=== PATIENT | male | born 1940 | race Caucasian/White ===

== ENCOUNTER 2016-08-06 19:19 | Inpatient (IN) | payer OTHER ==
[~2016-08-06] VITALS: Ht 172.7 cm; Wt 87.7 kg
[~2016-08-06 19:19] MED LIST: ALDACTONE25 MG PO; CLARINEX5 MG PO; CLINDAMYCIN HC300 MG PO; CLONAZEPAM1 MG PO; CONSTULOSE10 GM/151 PO; EFUDEX5% TOP; FERROUS SULFAT325 M2 PO; FINASTERIDE5 M1 PO; FLO4 PO; KEN5C TOP; LAC PO; LAC-HYDRIN12% TOP; LASIX20 MG PO; LEVAQUIN750 MG PO; OMEPRAZOLE40 M1 PO; PREDNISONE10 MG PO; VOLTAREN75 MG
[2016-08-06 20:50] LABS: microscopic required? YES; urine erythrocyte 3+ (NEGATIVE)
[2016-08-06 20:57] LABS: BASOPHIL % 1.2 % (0-2)
[2016-08-06 21:02] LABS: PLATELET COUNT 85 x10^3mcL (130-400); RED CELL DISTRIBUTION WIDTH 15.3 % (11.5-14.5)
[2016-08-06 21:19] LABS: ALKALINE PHOSPHATASE 266 U/L (46-116); ALT/SGPT 39 U/L (16-63); AST/SGOT 39 U/L (15-37); BILIRUBIN TOTAL 1.44 mg/dL (0.20-1.00); CALCIUM 8.9 mg/dL (8.5-10.1); CARBON DIOXIDE 22.9 mmol/L (21-32); CHLORIDE SERUM 95 mmol/L (98-107); CREATININE SERUM 1.4 mg/dL (0.7-1.3); POTASSIUM SERUM 4.2 mmol/L (3.5-5.1); SODIUM SERUM 129 mmol/L (136-145); TOTAL PROTEIN, SERUM 7.7 g/dL (6.4-8.2)
[2016-08-06 21:23] LABS: ALBUMIN 3.1 g/dL (3.4-5.0); CK-MB 0.6 ng/mL (0-3.6)
[2016-08-06 21:25] LABS: GLUCOSE SERUM 541 mg/dL (74-106)
[2016-08-06 23:42] LABS: CHOLESTEROL/HDL RATIO 3.8; MAGNESIUM 1.9 mg/dL (1.8-2.4); PHOSPHOROUS 3.3 mg/dL (2.5-4.9)
[2016-08-06 23:46] VITALS: BP 113/74
[2016-08-06 23:48] LABS: FREE T4 1.14 ng/dL (0.76-1.46); FREE THYROXINE INDEX 3.4 ug/dL (1.4-4.5); T4(THYROXINE) 9.9 ug/dL (4.7-13.3)
[2016-08-07 00:32] LABS: T3 TOTAL 0.84 ng/mL
[2016-08-07 01:00] VITALS: BP 123/76
[2016-08-07 05:54] VITALS: BP 119/56
[2016-08-07 06:34] LABS: CARBON DIOXIDE 27.8 mmol/L (21-32); CHLORIDE SERUM 104 mmol/L (98-107); CREATININE SERUM 1.1 mg/dL (0.7-1.3); GLUCOSE SERUM 215 mg/dL (74-106); LACTIC DEHYDROGENASE (LDH) 137 U/L (100-190); POTASSIUM SERUM 4.2 mmol/L (3.5-5.1); SODIUM SERUM 136 mmol/L (136-145)
[2016-08-07 07:20] LABS: BASOPHIL % 1.6 % (0-2)
[2016-08-07 07:27] LABS: PLATELET COUNT 58 x10^3mcL (130-400); RED CELL DISTRIBUTION WIDTH 15.2 % (11.5-14.5)
[2016-08-07 09:19] VITALS: BP 122/69
[2016-08-07 13:03] VITALS: BP 109/71
[2016-08-07 22:10] VITALS: BP 103/62
[2016-08-08 05:39] VITALS: BP 109/55
[2016-08-08 10:00] VITALS: BP 114/52
[2016-08-08 17:16] VITALS: BP 114/52
[2016-08-08 17:22] VITALS: BP 106/57
[2016-08-08] MEDS ORDERED: DIF100 PO (17:27)
[2016-08-08] MEDS ORDERED: LEVAQUIN250 M1 PO (17:27)
[2016-08-08] MEDS ORDERED: GLU500 PO (17:28)
== END 2016-08-08 19:49 | disposition home health service (06) | DRG 871 ==
LOC: ED 19:19 → DU 22:17 → MU 22:17 → DU 23:26 → MU 08-08 10:51
PROVIDERS: Emergency Medicine; ADMIT Family Medicine
DX: A41.9 Sepsis, unspecified organism (principal); E11.00 Type 2 diabetes mellitus with hyperosmolarity without nonketotic hyperglycemic-hyperosmolar coma (NKHHC); K85.90 Acute pancreatitis without necrosis or infection, unspecified; E44.0 Moderate protein-calorie malnutrition; E87.1 Hypo-osmolality and hyponatremia; B37.49 Other urogenital candidiasis; D68.69 Other thrombophilia; I45.2 Bifascicular block; E11.65 Type 2 diabetes mellitus with hyperglycemia; R65.20 Severe sepsis without septic shock; K74.69 Other cirrhosis of liver; E78.1 Pure hyperglyceridemia; K72.90 Hepatic failure, unspecified without coma; F41.8 Other specified anxiety disorders; D69.6 Thrombocytopenia, unspecified
CPT/HCPCS: 76770; 82962; 83880; 84439; C9113; J0690; J0696; J1815; J1940; J7030; J7512; Q0092

== ENCOUNTER 2016-08-19 14:13 | Observation (INO) | payer OTHER ==
[~2016-08-19] VITALS: Ht 172.7 cm; Wt 84.9 kg
[~2016-08-19 14:13] MED LIST changes: +DIF100 PO; +GLU500 PO; +LEVAQUIN250 M1 PO
[2016-08-19 15:05] LABS: BASOPHIL % 1.4 % (0-2)
[2016-08-19 15:07] LABS: PLATELET COUNT 115 x10^3mcL (130-400); RED CELL DISTRIBUTION WIDTH 15.1 % (11.5-14.5)
[2016-08-19 15:08] LABS: CALCIUM 9.1 mg/dL (8.5-10.1); CARBON DIOXIDE 20.9 mmol/L (21-32); CHLORIDE SERUM 108 mmol/L (98-107); CREATININE SERUM 1.3 mg/dL (0.7-1.3); GLUCOSE SERUM 86 mg/dL (74-106); SODIUM SERUM 140 mmol/L (136-145)
[2016-08-19 15:24] LABS: ALKALINE PHOSPHATASE 151 U/L (46-116); ALT/SGPT 39 U/L (16-63); AST/SGOT 52 U/L (15-37); BILIRUBIN TOTAL 1.1 mg/dL (0.20-1.00); MAGNESIUM 1.8 mg/dL (1.8-2.4); TOTAL PROTEIN, SERUM 7.3 g/dL (6.4-8.2)
[2016-08-19 15:51] LABS: UA SPECIFIC GRAVITY >=1.030 (1.005-1.035); microscopic required? YES; urine erythrocyte 3+ (NEGATIVE)
[2016-08-19 18:45] VITALS: BP 135/76
[2016-08-19 18:50] VITALS: Ht 172.7 cm; Wt 84.9 kg
[2016-08-19 18:52] LABS: FREE T4 1.31 ng/dL (0.76-1.46)
[2016-08-19 18:56] LABS: T3 TOTAL 1.22 ng/mL
[2016-08-19 19:25] LABS: CHOLESTEROL/HDL RATIO 4.1; PHOSPHOROUS 2.8 mg/dL (2.5-4.9)
[2016-08-19 19:31] LABS: FREE THYROXINE INDEX 3.1 ug/dL (1.4-4.5); T4(THYROXINE) 9.8 ug/dL (4.7-13.3)
[2016-08-19 22:43] VITALS: BP 113/76
[2016-08-20 06:16] VITALS: BP 105/65
[2016-08-20 08:00] LABS: BASOPHIL % 0.8 % (0-2)
[2016-08-20 08:01] LABS: PLATELET COUNT 91 x10^3mcL (130-400); RED CELL DISTRIBUTION WIDTH 15.1 % (11.5-14.5)
[2016-08-20 08:16] LABS: CALCIUM 8.8 mg/dL (8.5-10.1); CARBON DIOXIDE 21.7 mmol/L (21-32); CHLORIDE SERUM 105 mmol/L (98-107); CREATININE SERUM 1.3 mg/dL (0.7-1.3); GLUCOSE SERUM 131 mg/dL (74-106); POTASSIUM SERUM 3.9 mmol/L (3.5-5.1); SODIUM SERUM 138 mmol/L (136-145)
[2016-08-20 08:24] LABS: ALBUMIN 2.7 g/dL (3.4-5.0)
[2016-08-20 09:30] VITALS: BP 97/55
[2016-08-20 13:14] VITALS: BP 116/68
[2016-08-20] MEDS ORDERED: CONSTULOSE10 GM/151 PO (16:38)
[2016-08-20] MEDS ORDERED: LEVAQUIN750 MG PO (16:40)
[2016-08-20] MEDS ORDERED: LAC PO (16:41)
[2016-08-20 16:59] VITALS: BP 116/68
[2016-08-20] MEDS ORDERED: DICLOFENAC SODI75 MG PO (17:07)
[2016-08-20 17:20] VITALS: BP 95/59
== END 2016-08-20 18:51 | disposition home or self-care (01) | DRG 441 ==
LOC: ED 14:13 → DU 16:20 → MU 08-20 14:07
PROVIDERS: Emergency Medicine; ADMIT Family Medicine
DX: K72.01 Acute and subacute hepatic failure with coma (principal); E43 Unspecified severe protein-calorie malnutrition; N17.0 Acute kidney failure with tubular necrosis; N39.0 Urinary tract infection, site not specified; D68.69 Other thrombophilia; R31.9 Hematuria, unspecified; K74.60 Unspecified cirrhosis of liver; D69.59 Other secondary thrombocytopenia; E11.65 Type 2 diabetes mellitus with hyperglycemia; E11.59 Type 2 diabetes mellitus with other circulatory complications; Z86.73 Personal history of transient ischemic attack (TIA), and cerebral infarction without residual deficits; Z79.84 Long term (current) use of oral hypoglycemic drugs; Z79.52 Long term (current) use of systemic steroids; Z68.29 Body mass index [BMI] 29.0-29.9, adult
CPT/HCPCS: 80307; 82962; 83880; 84439; G0378; J0696; J1956; J7030; J7512; Q0092

== ENCOUNTER 2017-05-16 14:43 | Inpatient (IN) | payer OTHER ==
[~2017-05-16] VITALS: Ht 172.7 cm; Wt 86.2 kg
[~2017-05-16 14:43] MED LIST changes: +DICLOFENAC SODI75 MG PO
[2017-05-16 15:37] LABS: BASOPHIL % 1.1 % (0-2)
[2017-05-16 15:39] LABS: PLATELET COUNT 120 x10^3mcL (130-400); RED CELL DISTRIBUTION WIDTH 19.2 % (11.5-14.5)
[2017-05-16 16:05] LABS: ALT/SGPT 32 U/L (16-63); CHLORIDE SERUM 105 mmol/L (98-107); POTASSIUM SERUM 3.4 mmol/L (3.5-5.1); SODIUM SERUM 140 mmol/L (136-145)
[2017-05-16 16:21] LABS: ALKALINE PHOSPHATASE 226 U/L (46-116); AST/SGOT 68 U/L (15-37); BILIRUBIN TOTAL 2.37 mg/dL (0.20-1.00); CALCIUM 8.1 mg/dL (8.5-10.1); CARBON DIOXIDE 24.6 mmol/L (21-32); CREATININE SERUM 1.3 mg/dL (0.7-1.3); GLUCOSE SERUM 123 mg/dL (74-106); TOTAL PROTEIN, SERUM 6.5 g/dL (6.4-8.2)
[2017-05-16 16:29] LABS: ALBUMIN 2.3 g/dL (3.4-5.0)
[2017-05-16 16:38] LABS: UA SPECIFIC GRAVITY 1.025 (1.005-1.035); microscopic required? YES; urine erythrocyte 3+ (NEGATIVE)
[2017-05-16 17:19] LABS: SOURCE FLUID ASCITES
[2017-05-16 17:20] LABS: APPEARANCE FLUID HAZY; COLOR FLUID PALE YELLOW; RBC FLUID 382 /cumm; WBC FLUID 241 /cumm
[2017-05-16 17:34] LABS: LYMPHOCYTE FLUID 40 %
[2017-05-16 17:58] LABS: MAGNESIUM 2.1 mg/dL (1.8-2.4); PHOSPHOROUS 2.3 mg/dL (2.5-4.9)
[2017-05-16 18:01] LABS: CHOLESTEROL/HDL RATIO 3.1
[2017-05-16 18:07] LABS: T3 TOTAL 0.83 ng/mL
[2017-05-16 18:14] LABS: FREE T4 1.55 ng/dL (0.76-1.46); FREE THYROXINE INDEX 3.2 ug/dL (1.4-4.5); T4(THYROXINE) 8.3 ug/dL (4.7-13.3)
[2017-05-16 18:20] LABS: AMPHETAMINE QUAL UR NONE DETECTED (NEG <=1000)
[2017-05-16 18:30] VITALS: BP 131/65
[2017-05-16 20:10] VITALS: BP 110/57
[2017-05-16 21:20] VITALS: BP 122/59
[2017-05-17] VITALS (7 sets, daily range): BP systolic 99–135; BP diastolic 52–74
[2017-05-17 07:24] LABS: PLATELET COUNT 90 x10^3mcL (130-400); RED CELL DISTRIBUTION WIDTH 19.2 % (11.5-14.5)
[2017-05-17 07:35] LABS: CALCIUM 7.6 mg/dL (8.5-10.1); CARBON DIOXIDE 24.8 mmol/L (21-32); CHLORIDE SERUM 108 mmol/L (98-107); GLUCOSE SERUM 96 mg/dL (74-106); MAGNESIUM 1.7 mg/dL (1.8-2.4); PHOSPHOROUS 2.5 mg/dL (2.5-4.9); POTASSIUM SERUM 3.3 mmol/L (3.5-5.1); SODIUM SERUM 140 mmol/L (136-145)
[2017-05-18 04:44] VITALS: BP 133/77
[2017-05-18 08:00] VITALS: BP 131/80
[2017-05-18 08:00] LABS: CALCIUM 7.5 mg/dL (8.5-10.1); CARBON DIOXIDE 23.1 mmol/L (21-32); CHLORIDE SERUM 109 mmol/L (98-107); CREATININE SERUM 1.1 mg/dL (0.7-1.3); GLUCOSE SERUM 104 mg/dL (74-106); MAGNESIUM 1.8 mg/dL (1.8-2.4); POTASSIUM SERUM 3.6 mmol/L (3.5-5.1); SODIUM SERUM 141 mmol/L (136-145)
[2017-05-18 08:12] LABS: BASOPHIL % 1.5 % (0-2)
[2017-05-18 08:13] LABS: PLATELET COUNT 91 x10^3mcL (130-400); RED CELL DISTRIBUTION WIDTH 19.7 % (11.5-14.5)
[2017-05-18 09:30] VITALS: BP 120/74
[2017-05-18 13:05] VITALS: BP 138/78
[2017-05-18 17:09] VITALS: BP 92/60
[2017-05-18 21:00] VITALS: BP 101/64
[2017-05-18 22:13] LABS: SOURCE FLUID PARACENTESIS
[2017-05-18 22:14] LABS: APPEARANCE FLUID HAZY; COLOR FLUID YELLOW; RBC FLUID 800 /cumm; WBC FLUID 103 /cumm
[2017-05-18 22:15] LABS: LYMPHOCYTE FLUID 38 %; MONOCYTE FLUID 39 %
[2017-05-19 06:00] VITALS: BP 99/56
[2017-05-19 07:26] LABS: BASOPHIL % 1.9 % (0-2)
[2017-05-19 08:40] LABS: PLATELET COUNT 85 x10^3mcL (130-400)
[2017-05-19 09:33] VITALS: BP 139/84
[2017-05-19 09:37] LABS: CALCIUM 7.8 mg/dL (8.5-10.1); CARBON DIOXIDE 23.9 mmol/L (21-32); CHLORIDE SERUM 106 mmol/L (98-107); CREATININE SERUM 1.1 mg/dL (0.7-1.3); GLUCOSE SERUM 94 mg/dL (74-106); MAGNESIUM 1.7 mg/dL (1.8-2.4); PHOSPHOROUS 2.8 mg/dL (2.5-4.9); POTASSIUM SERUM 3.7 mmol/L (3.5-5.1); SODIUM SERUM 139 mmol/L (136-145)
[2017-05-19 16:47] VITALS: BP 90/60
[2017-05-19 22:00] VITALS: BP 125/67
[2017-05-20 06:06] VITALS: BP 105/61
[2017-05-20 07:44] LABS: CALCIUM 7.6 mg/dL (8.5-10.1); CHLORIDE SERUM 104 mmol/L (98-107); CREATININE SERUM 1.2 mg/dL (0.7-1.3); GLUCOSE SERUM 93 mg/dL (74-106); POTASSIUM SERUM 3.4 mmol/L (3.5-5.1); SODIUM SERUM 138 mmol/L (136-145)
[2017-05-20 08:22] VITALS: BP 118/70
[2017-05-20 08:23] LABS: BASOPHIL % 1.4 % (0-2); PLATELET COUNT 93 x10^3mcL (130-400); RED CELL DISTRIBUTION WIDTH 19.9 % (11.5-14.5)
[2017-05-20 09:12] VITALS: BP 118/70
[2017-05-20 15:51] VITALS: BP 118/70
[2017-05-20] MEDS ORDERED: LAC PO (16:07)
[2017-05-20] MEDS ORDERED: GENTAMICIN80 MG/102 IV (16:18)
[2017-05-20] MEDS ORDERED: [UNRECOGNIZED DRUG - OTHER] IJ (16:21)
[2017-05-20 16:38] VITALS: BP 117/78
[2017-05-20 21:05] VITALS: BP 106/64
[2017-06-01] MEDS ORDERED: PRED FORTE1 ML OS (21:53)
[2017-06-01] MEDS ORDERED: FERROUS SULFAT325 M2 PO (21:53)
[2017-06-01] MEDS ORDERED: CLONAZEPAM1 MG PO (21:54)
[2017-06-01] MEDS ORDERED: GOOD SENSE OMEP20 MG PO (21:54)
[2017-06-01] MEDS ORDERED: ALDACTONE25 MG PO (21:55)
[2017-06-06] MEDS ORDERED: ZYV600 PO (16:13)
[2017-06-06] MEDS ORDERED: FLO4 PO (16:15)
[2017-06-06] MEDS ORDERED: BACO TOP (16:16)
[2017-06-06] MEDS ORDERED: HIBICLENS118 ML TOP (16:16)
[2017-06-06] MEDS ORDERED: ZINO TOP (16:17)
[2017-06-08 10:01] VITALS: Ht 172.7 cm; Wt 86.2 kg
== END 2017-05-21 00:41 | DRG 371 ==
LOC: ED 14:43 → MU 16:46 → DU 16:46 → MU 05-18 09:27
PROVIDERS: Emergency Medicine; Family Medicine
PROC: 0W9G3ZZ Drainage of Peritoneal Cavity, Percutaneous Approach (ICD-10-PCS; principal; 2017-05-18)
DX: K65.2 Spontaneous bacterial peritonitis (principal); N17.0 Acute kidney failure with tubular necrosis; E43 Unspecified severe protein-calorie malnutrition; R18.8 Other ascites; N39.0 Urinary tract infection, site not specified; K57.92 Diverticulitis of intestine, part unspecified, without perforation or abscess without bleeding; B96.20 Unspecified Escherichia coli [E. coli] as the cause of diseases classified elsewhere; K74.60 Unspecified cirrhosis of liver; E83.39 Other disorders of phosphorus metabolism; E83.42 Hypomagnesemia; E87.6 Hypokalemia; F41.8 Other specified anxiety disorders; N20.0 Calculus of kidney; N40.0 Benign prostatic hyperplasia without lower urinary tract symptoms; Z66 Do not resuscitate; Z68.30 Body mass index [BMI] 30.0-30.9, adult; Z16.12 Extended spectrum beta lactamase (ESBL) resistance
CPT/HCPCS: 49083; 83880; 84439; C1729; J0290; J0696; J0698; J1580; J1940; J1956; J2001; J2185; J2543; J3010; J3490; J7030; J7620; Q0092

== ENCOUNTER 2017-06-14 13:49 | Inpatient (IN) | payer OTHER ==
[~2017-06-14] VITALS: Ht 172.7 cm; Wt 120.7 kg
[~2017-06-14 13:49] MED LIST changes: +BACO TOP; +GENTAMICIN80 MG/102 IV; +GOOD SENSE OMEP20 MG PO; +HIBICLENS118 ML TOP; +PRED FORTE1 ML OS; +ZINO TOP; +ZYV600 PO; +[UNRECOGNIZED DRUG - OTHER] IJ
[2017-06-14 14:46] LABS: PLATELET COUNT 112 x10^3mcL (130-400); RED CELL DISTRIBUTION WIDTH 18.6 % (11.5-14.5)
[2017-06-14 14:56] LABS: ALKALINE PHOSPHATASE 215 U/L (46-116); ALT/SGPT 41 U/L (16-63); AST/SGOT 54 U/L (15-37); BILIRUBIN TOTAL 1.4 mg/dL (0.20-1.00); CARBON DIOXIDE 23.1 mmol/L (21-32); CHLORIDE SERUM 104 mmol/L (98-107); CREATININE SERUM 1.3 mg/dL (0.7-1.3); GLUCOSE SERUM 144 mg/dL (74-106); LIPASE 311 IU/L (73-393); POTASSIUM SERUM 3.8 mmol/L (3.5-5.1); SODIUM SERUM 137 mmol/L (136-145); TOTAL PROTEIN, SERUM 6.4 g/dL (6.4-8.2)
[2017-06-14] MEDS ORDERED: MORPHINE SULFAT15 MG (15:03)
[2017-06-14 15:04] LABS: CALCIUM 8.1 mg/dL (8.5-10.1)
[2017-06-14 15:30] LABS: PHOSPHOROUS 2.5 mg/dL (2.5-4.9)
[2017-06-14 15:41] LABS: FREE T4 1.45 ng/dL (0.76-1.46); FREE THYROXINE INDEX 2.7 ug/dL (1.4-4.5); T3 TOTAL 0.72 ng/mL; T4(THYROXINE) 6.9 ug/dL (4.7-13.3)
[2017-06-14 16:00] LABS: UA SPECIFIC GRAVITY 1.025 (1.005-1.035); microscopic required? YES; urine erythrocyte 3+ (NEGATIVE)
[2017-06-14 16:16] VITALS: BP 105/52
[2017-06-14 21:24] VITALS: BP 96/55
[2017-06-14 23:00] VITALS: BP 102/53
[2017-06-15 05:52] VITALS: BP 101/52
[2017-06-15 06:20] LABS: BASOPHIL % 1.8 % (0-2)
[2017-06-15 06:24] LABS: PLATELET COUNT 89 x10^3mcL (130-400); RED CELL DISTRIBUTION WIDTH 19.1 % (11.5-14.5)
[2017-06-15 07:08] LABS: CALCIUM 7.8 mg/dL (8.5-10.1); CARBON DIOXIDE 21.5 mmol/L (21-32); CHLORIDE SERUM 107 mmol/L (98-107); CREATININE SERUM 1.2 mg/dL (0.7-1.3); GLUCOSE SERUM 87 mg/dL (74-106); POTASSIUM SERUM 3.9 mmol/L (3.5-5.1); SODIUM SERUM 137 mmol/L (136-145)
[2017-06-15 10:04] VITALS: BP 135/73
[2017-06-15 12:56] VITALS: BP 109/63
[2017-06-15 18:11] VITALS: BP 100/59
[2017-06-15 20:57] VITALS: BP 117/60
[2017-06-15 23:02] LABS: APPEARANCE FLUID CLEAR; COLOR FLUID COLORLESS; SOURCE FLUID ASCITES
[2017-06-15 23:03] LABS: RBC FLUID 649 /cumm; WBC FLUID 64 /cumm
[2017-06-15 23:05] LABS: LYMPHOCYTE FLUID 95 %
[2017-06-15 23:08] LABS: MONOCYTE FLUID 0 %
[2017-06-16 05:37] VITALS: BP 119/67
[2017-06-16 06:56] LABS: BASOPHIL % 1.5 % (0-2)
[2017-06-16 07:04] LABS: PLATELET COUNT 101 x10^3mcL (130-400); RED CELL DISTRIBUTION WIDTH 18.6 % (11.5-14.5)
[2017-06-16 07:05] LABS: CALCIUM 7.4 mg/dL (8.5-10.1); CARBON DIOXIDE 21.9 mmol/L (21-32); CHLORIDE SERUM 103 mmol/L (98-107); CREATININE SERUM 1.5 mg/dL (0.7-1.3); GLUCOSE SERUM 99 mg/dL (74-106); POTASSIUM SERUM 4.3 mmol/L (3.5-5.1); SODIUM SERUM 133 mmol/L (136-145)
[2017-06-16 09:41] VITALS: BP 120/70
[2017-06-16 12:58] VITALS: BP 112/71
[2017-06-16 13:33] VITALS: BP 112/71
[2017-06-16 16:41] VITALS: BP 92/58
[2017-06-17 06:25] VITALS: BP 101/66
[2017-06-17 08:40] LABS: BASOPHIL % 1.3 % (0-2)
[2017-06-17 08:45] LABS: PLATELET COUNT 91 x10^3mcL (130-400); RED CELL DISTRIBUTION WIDTH 18.8 % (11.5-14.5)
[2017-06-17 09:13] LABS: CALCIUM 7.7 mg/dL (8.5-10.1); CARBON DIOXIDE 18.4 mmol/L (21-32); CHLORIDE SERUM 101 mmol/L (98-107); CREATININE SERUM 1.4 mg/dL (0.7-1.3); GLUCOSE SERUM 103 mg/dL (74-106); POTASSIUM SERUM 4.5 mmol/L (3.5-5.1); SODIUM SERUM 131 mmol/L (136-145)
[2017-06-17 09:16] VITALS: BP 125/69
[2017-06-17 13:54] VITALS: BP 99/64
[2017-06-17 17:03] VITALS: BP 91/61
[2017-06-17 21:40] VITALS: BP 103/65
[2017-06-18 05:49] VITALS: BP 130/86
[2017-06-18 07:27] LABS: GLUCOSE SERUM 121 mg/dL (74-106)
[2017-06-18 07:43] LABS: CARBON DIOXIDE 21.6 mmol/L (21-32); CHLORIDE SERUM 97 mmol/L (98-107); CREATININE SERUM 1.4 mg/dL (0.7-1.3); POTASSIUM SERUM 4.9 mmol/L (3.5-5.1); SODIUM SERUM 129 mmol/L (136-145)
[2017-06-18 07:50] LABS: BASOPHIL % 0.5 % (0-2); PLATELET COUNT 134 x10^3mcL (130-400)
[2017-06-18 07:52] LABS: RED CELL DISTRIBUTION WIDTH 18.3 % (11.5-14.5)
[2017-06-18 09:56] VITALS: BP 113/74
[2017-06-18 14:01] VITALS: BP 91/65
[2017-06-18 17:50] VITALS: BP 117/74
[2017-06-18 21:51] VITALS: BP 106/64
[2017-06-19 05:40] VITALS: BP 125/56
[2017-06-19 06:55] LABS: BASOPHIL % 0.6 % (0-2)
[2017-06-19 06:58] LABS: PLATELET COUNT 123 x10^3mcL (130-400); RED CELL DISTRIBUTION WIDTH 18.4 % (11.5-14.5)
[2017-06-19 07:08] LABS: CALCIUM 7.8 mg/dL (8.5-10.1); CARBON DIOXIDE 23.1 mmol/L (21-32); CHLORIDE SERUM 97 mmol/L (98-107); CREATININE SERUM 1.3 mg/dL (0.7-1.3); GLUCOSE SERUM 90 mg/dL (74-106); PHOSPHOROUS 3.5 mg/dL (2.5-4.9); POTASSIUM SERUM 4.7 mmol/L (3.5-5.1); SODIUM SERUM 129 mmol/L (136-145)
[2017-06-19 08:06] VITALS: Ht 172.7 cm; Wt 120.7 kg
[2017-06-19 09:32] VITALS: BP 109/61
[2017-06-19 12:30] VITALS: BP 99/62
[2017-06-19 17:57] VITALS: BP 117/68
[2017-06-19 21:29] VITALS: BP 100/59
[2017-06-20 05:56] VITALS: BP 99/60
[2017-06-20 06:58] LABS: BASOPHIL % 1.2 % (0-2)
[2017-06-20 06:59] LABS: PLATELET COUNT 114 x10^3mcL (130-400); RED CELL DISTRIBUTION WIDTH 17.8 % (11.5-14.5)
[2017-06-20 08:27] LABS: ALBUMIN 1.7 g/dL (3.4-5.0); ALKALINE PHOSPHATASE 139 U/L (46-116); ALT/SGPT 35 U/L (16-63); AST/SGOT 53 U/L (15-37); BILIRUBIN TOTAL 1.7 mg/dL (0.20-1.00); CALCIUM 7.3 mg/dL (8.5-10.1); CARBON DIOXIDE 24.1 mmol/L (21-32); CHLORIDE SERUM 95 mmol/L (98-107); CREATININE SERUM 1.5 mg/dL (0.7-1.3); GLUCOSE SERUM 91 mg/dL (74-106); POTASSIUM SERUM 4.7 mmol/L (3.5-5.1); SODIUM SERUM 128 mmol/L (136-145); TOTAL PROTEIN, SERUM 5.4 g/dL (6.4-8.2)
[2017-06-20 08:53] VITALS: BP 100/64
[2017-06-20] MEDS ORDERED: ROX5 PO (09:38)
[2017-06-20] MEDS ORDERED: ZOFI IV (09:39)
[2017-06-20] MEDS ORDERED: PROT40I IV (09:47)
[2017-06-20 09:49] VITALS: BP 100/64
[2017-06-20] MEDS ORDERED: NOVAPLUS ZYVO2 MG/ML IV (11:22)
[2017-06-20] MEDS ORDERED: MEROPENEM-1 GM/50 ML IV (11:24)
[2017-06-20] MEDS ORDERED: IPRATROPIUM BROM3 M2 HHN (11:25)
== END 2017-06-20 13:25 | disposition hospice, home (50) | DRG 871 ==
LOC: ED 13:49 → DU 15:03
PROVIDERS: Emergency Medicine; Family Medicine; Internal Medicine
PROC: 0W9G3ZZ Drainage of Peritoneal Cavity, Percutaneous Approach (ICD-10-PCS; principal; 2017-06-15)
PROC: 0W9G3ZZ Drainage of Peritoneal Cavity, Percutaneous Approach (ICD-10-PCS; 2017-06-17)
PROC: 0W3P8ZZ Control Bleeding in Gastrointestinal Tract, Via Natural or Artificial Opening Endoscopic (ICD-10-PCS; 2017-06-18 13:30)
DX: A41.51 Sepsis due to Escherichia coli [E. coli] (principal); K72.00 Acute and subacute hepatic failure without coma; N17.0 Acute kidney failure with tubular necrosis; E43 Unspecified severe protein-calorie malnutrition; G93.41 Metabolic encephalopathy; R18.8 Other ascites; K76.6 Portal hypertension; J98.11 Atelectasis; E87.1 Hypo-osmolality and hyponatremia; I45.2 Bifascicular block; Z88.2 Allergy status to sulfonamides; K74.60 Unspecified cirrhosis of liver; E11.9 Type 2 diabetes mellitus without complications; F32.9 Major depressive disorder, single episode, unspecified; Z90.49 Acquired absence of other specified parts of digestive tract; D72.819 Decreased white blood cell count, unspecified; D63.8 Anemia in other chronic diseases classified elsewhere; R65.20 Severe sepsis without septic shock; Z80.3 Family history of malignant neoplasm of breast; N21.0 Calculus in bladder; Z68.29 Body mass index [BMI] 29.0-29.9, adult; N18.9 Chronic kidney disease, unspecified; N30.80 Other cystitis without hematuria; D69.6 Thrombocytopenia, unspecified; I45.10 Unspecified right bundle-branch block; E80.6 Other disorders of bilirubin metabolism; K22.8 Other specified diseases of esophagus; K20.9 Esophagitis, unspecified; K29.80 Duodenitis without bleeding; F41.9 Anxiety disorder, unspecified
CPT/HCPCS: 43235; 83880; 84439; 88344; 94150; 97110-GP; 97530-GP; C9113; J0696; J1200; J1610; J1885; J2001; J2020; J2185; J2250; J2270; J2310; J2405; J2550; J3010; J3490; J7030; J7620; Q0092